=== PATIENT | female | born 1995 | race Caucasian/White ===

== ENCOUNTER 2021-07-29 01:29 | Day surgery (SDC) | payer OTHER, SELFPAY ==
[2021-07-24 11:08] VITALS: BMI 41.9
[2021-07-29 06:00] VITALS: BP 117/71; PULSE 79; RESP 16; TEMP 36.8; O2SAT 100; BMI 42.5
[2021-07-29] MEDS: LACTATED RINGERS 1,000 ML 30 ML IV CONT (06:27)
[2021-07-29] MEDS: ACETAMINOPHEN 500 MG TABLET 1000 MG PO (06:28)
--- NOTE | 2021-07-29 07:11 | P.PNAN_ITS ---
Anes - Initial Pre Proc Eval Procedure: Operation Date: 07/29/21 07:30 Proposed Procedures p Hysteroscopy With Biopsy Endometrium or Polypectomy - Promise Lerner MD Date/Time: 07/29/21 07:11 Surgeon: Promise Lerner MD Pre Op Diagnosis: Lesion of Endometrium Patient Data Age: 26 Gender: F Height: 1.68 m Weight: 117.95 kg Allergies Allergy/AdvReac Type Severity Reaction Status Date / Time No Known Allergies Allergy Verified 07/29/21 06:16 Home Medications Medication Instructions Recorded Confirmed Type albuterol sulfate 90 mcg/actuation 2 inh INHALATION Q6H PRN #1 each 10/14/20 07/24/21 Rx breath activated powder inhaler fluticasone propion-salmeterol 1 inh INHALATION PRN PRN 07/24/21 07/24/21 History [Advair Diskus] Patient hx anesthesia problems: none Family hx anesthesia problems: none PMFSH Past Medical History Medical History (Updated 07/29/21 @ 07:11 by Isreal Anthony MD) Anxiety Cough variant asthma Family History Family History (Reviewed 10/14/20 @ 13:13 by Fabiaan Toscano [facility]) Father Family history of mental disorder Hypertension Anxiety Sibling Asthma Grandparent Family history of Alzheimer's disease Social History Social History (Reviewed 10/14/20 @ 13:13 by Fabiana Toscano [facility]) Smoking status: Never smoker Second hand tobacco smoke exposure: No Alcohol intake: current Alcohol use details: TWO DRINKS PER MONTH Substance use: never Living arrangements: with family Spiritual care concerns: No Anes - Eval Final PreProcedure Day of Procedure 07/29/21 07:11 Patient weight: morbidly obese Heart: regular rate and rhythm Lungs: clear to auscultation Airway: Mallampati scale class II Neurological: alert and oriented Last oral intake: >/= 8 hours ASA classification: III Emergent: no Anesthetic plan: proceed Anesthesia type and monitoring: general GIVS and standard monitoring Informed Consent: The patient's anesthetic plan and its attendant risks and benefits were discussed with the patient/family/POA. Questions were solicited and answers provided to the satisfaction of the patient/family/POA.
--- NOTE | 2021-07-29 07:15 | WPDHPUPDATE1 ---
History and Physical Update Update Date/Time: 07/29/21 07:15 History and Physical has been reviewed, including an updated exam of the patient. There are NO changes in the patient's condition. Risks, benefits, and alternatives have been discussed and questions answered. Patient agrees to proceed with procedure.
[2021-07-29 07:52] VITALS: BP 118/70; PULSE 90; RESP 16; O2SAT 92
[2021-07-29 08:00] VITALS: BP 118/75; PULSE 98; RESP 16; O2SAT 98
--- NOTE | 2021-07-29 08:06 | P.OP_ITS ---
Procedure Note - Detailed Date of Procedure 07/29/21 Pre-op Diagnosis Lesion of Endometrium Post-op Diagnosis same (Endometrial Polyp) Procedure Performed Hysteroscopy D&C with polypectomy Surgeon Promise Lerner MD Anesthesia MAC Indications Endometrial lesions Findings Multiple anterior endometrial wall nodules, normal vulva, vagina, cervix. Description of Procedure the patient was taken the operating room. She was prepped and draped in the dorsal lithotomy position after induction of mac anesthesia. A speculum was placed in the vagina. The cervix was grasped with a tenaculum. The cervix was dilated about 1 cm. The hysteroscope was inserted. The intrauterine cavity and endocervix were evaluated. Hysteroscope was withdrawn. A medium-size curette was used to curettage all the surfaces were within the endometrial cavity. the sample was collected on Telfa and sent to pathology. Nodules on the anterior abdominal wall removed by avulsing them with a curette.. The hysteroscope was reinserted and the above findings were noted. Patient tolerated the procedure well. The speculum and tenaculum were removed. She was taken recovery room in stable condition. Sponge lap and needle counts were c orrect x2. Estimated Blood Loss 5 Drains No Packing No Pathology yes Complications No immediate complications Condition stable Disposition PACU
[2021-07-29 08:16] VITALS: BP 131/91; RESP 16; O2SAT 98
[2021-07-29 08:30] VITALS: BP 123/91; RESP 16
== END 2021-07-29 08:47 | disposition home or self-care (01) ==
PROVIDERS: PCP Family Medicine; Visit Provider Obstetrics & Gynecology
PROC: 0U5B8ZZ Destruction of Endometrium, Via Natural or Artificial Opening Endoscopic (ICD-10-PCS; CPT 58563; principal; 2021-07-29 07:30)
DX: N85.01 Benign endometrial hyperplasia (principal); Z86.73 Personal history of transient ischemic attack (TIA), and cerebral infarction without residual deficits; E66.01 Morbid (severe) obesity due to excess calories; Z68.41 Body mass index [BMI] 40.0-44.9, adult
CPT/HCPCS: 58558; 88305; A9270; J2250; J2270; J2405; J2704; J7030; J7120

== ENCOUNTER 2021-09-08 07:46 | Outpatient (CLI) | payer OTHER, SELFPAY ==
[2021-09-08 20:15] LABS: Hematocrit 38.6 % (37.0-47.0); Hemoglobin 12.9 g/dL (12.0-15.0); Mean Corpuscular HGB Conc 33.4 g/dl (32-36); Mean Corpuscular Hemoglobin 31.2 pg (26-34); Mean Corpuscular Volume 93.5 fl (80-100); Mean Platelet Volume 11.2 fl (7.4-10.4); Platelet Count Result 306 k/mm3 (150-375); Red Blood Count 4.13 M/mm3 (4.2-5.4); Red Cell Distribution Width 12.4 % (11.5-14.5); White Blood Count 7.4 K/mm3 (4.5-10.0)
[2021-09-08 20:27] LABS: Alanine Aminotransferase 20 U/L (4-35); Albumin Level 4.3 g/dL (3.5-5.1); Alkaline Phosphatase 86 U/L (38-126); Anion Gap 10 mmol/L (8-16); Aspartate Amino Transferase 24 U/L (14-36); Bilirubin,Total 0.6 mg/dL (0.2-1.3); Blood Urea Nitrogen 13 mg/dL (7-17); Calcium 9.6 mg/dL (8.4-10.2); Carbon Dioxide 26 mmol/L (22-30); Chloride 104 mmol/L (98-107); Cholesterol 252 mg/dL (0-200); Estimated Glomerular Filt Rate > 60; Glucose 96 mg/dL (65-110); HDL Direct 50 mg/dL; Potassium 4.6 mmol/L (3.4-5.0); Sodium 140 mmol/L (137-145); Triglycerides 169 mg/dL (<150)
[2021-09-08 20:37] LABS: LDL Cholesterol Direct 158 mg/dL
[2021-09-08 21:26] LABS: Hemoglobin A1C 5.7 % (<5.7)
== END 2021-09-08 07:47 | disposition home or self-care (01) ==
PROVIDERS: PCP Family Medicine; Visit Provider Family Medicine
DX: Z00.00 Encounter for general adult medical examination without abnormal findings (principal); E66.9 Obesity, unspecified
CPT/HCPCS: 36415; 80053; 80061; 83036; 85027

== ENCOUNTER 2021-12-05 09:52 | Outpatient (CLI) | payer OTHER, SELFPAY ==
--- NOTE | 2021-12-05 | ECG_ITS ---
Measurements Intervals [place] Rate: 62 P: 32 [place]: 143 QRS: 87 QRSD: 98 T: 36 QT: 374 QTc: 381 Interpretive Statements SINUS RHYTHM NORMAL ECG Electronically Signed On 12-05-2021 14:57:39 IN HOME [place] by Channing Mcdaniels D.O.
[2021-12-05 10:08] LABS: Hematocrit 40.6 % (37.0-47.0); Hemoglobin 13.5 g/dL (12.0-15.0); Mean Corpuscular HGB Conc 33.3 g/dl (32-36); Mean Corpuscular Volume 93.1 fl (80-100); Mean Platelet Volume 11.1 fl (7.4-10.4); Platelet Count Result 265 k/mm3 (150-375); Red Blood Count 4.36 M/mm3 (4.2-5.4)
[2021-12-05 10:20] LABS: Alanine Aminotransferase 34 U/L (4-35); Albumin Level 4.5 g/dL (3.5-5.1); Alkaline Phosphatase 82 U/L (38-126); Anion Gap 9 mmol/L (8-16); Aspartate Amino Transferase 28 U/L (14-36); Bilirubin,Total 0.5 mg/dL (0.2-1.3); Blood Urea Nitrogen 13 mg/dL (7-17); Calcium 9.9 mg/dL (8.4-10.2); Carbon Dioxide 27 mmol/L (22-30); Chloride 106 mmol/L (98-107); Estimated Glomerular Filt Rate > 60; Glucose 101 mg/dL (65-110); Sodium 142 mmol/L (137-145)
== END 2021-12-05 09:53 | disposition home or self-care (01) ==
PROVIDERS: PCP Family Medicine; Visit Provider Family Medicine
DX: Z01.818 Encounter for other preprocedural examination (principal)
CPT/HCPCS: 36415; 80053; 85027; 93005